=== PATIENT | female | born 1970 | race Caucasian/White ===

== ENCOUNTER 2018-08-13 10:25 | Day surgery (SDC) | payer BC, OTHER ==
[2018-08-12 10:40] VITALS: BMI 20.9
--- NOTE | 2018-08-13 07:28 | HP ---
History & Physical Update - History History: No Change - Physical Physical: No Change - Assessment Assessment: No Change - Plan Plan: No Change (H&P is located in her paper chart and will be scanned into [facility]. No new complaints or medications.)
[~2018-08-13 10:25] MED LIST: BUPIVACAINE HCL/PF (5 MG/ML) 30 ML VIAL IJ ONE; CEFAZOLIN 1 GM in DEXTROSE 5%-WATER - 100 ML IVPB ONE; DEXAMETHASONE SOD PHOSPHATE 4 MG/1 ML VIAL ONE; DEXAMETHASONE SOD PHOSPHATE/PF 10 MG/ML SDV ONE; GELATIN SPONGE,ABSORBABLE 1 GM PACKET TP ONE; HYDROmorphone HCL/PF 1 MG/ML AMP ONE; KETOROLAC TROMETHAMINE 30 MG/1 ML VIAL IVPUSH PRN; KETOROLAC TROMETHAMINE 30 MG/1 ML VIAL ONE; LIDOCAINE 1%/EPI 1:100000 (20 ML MULTI DOSE VIAL) ONE; LIDOCAINE 1%/EPI 1:100000 (50 ML MULTI DOSE VIAL) INF ONE; MIDAZOLAM HCL 2 MG/2 ML SINGLE DOSE VIAL ONE; ONDANSETRON 4 MG/2 ML VIAL ONE; PROPOFOL 20 ML ONE; ROCURONIUM BROMIDE 50 MG/5 ML VIAL ONE; SUCCINYLCHOLINE CHLORIDE 200 MG/10 ML VIAL ONE; THROMBIN (BOVINE) 5,000 UNIT VIAL TP ONE; THROMBIN (RECOMBINANT) 5,000 UNIT VIAL TP ONE; ceFAZolin SODIUM 1 GM VIAL ONE; ePHEDrine SULFATE 50 MG/1 ML AMPULE ONE; oxyCODONE HCL 10 MG SUSTAINED ACTING TABLET PO STA; oxyCODONE HCL 5 MG TABLET PO PRN
[2018-08-13] MEDS ORDERED: diazePAM 2 MG TABLET PO PRN (10:29)
[2018-08-13] MEDS ORDERED: LACTATED RINGERS SOLUTION 1,000 ML IV SCH (10:30)
--- NOTE | 2018-08-13 10:36 | OP ---
Operative Note - Note: Operative Date: 08/13/18 Pre-Operative Diagnosis: Cervical Stenosis w/ UE radiculopathy Operation: C4/5, C5/6 ACDF, allograft implant, neuromonitoring Post-Operative Diagnosis: Same as Pre-op Surgeon: Broderick Maciel Province Archivist: Sandor Cosby Anesthesiologist/SWITCH ENGINEER: Imer Zamora Anesthesia: General Specimens Removed: C4/5, C5/6 discs Estimated Blood Loss (mls): 20 Fluid Volume Replaced (mls): 1,000 Operative Report Dictated: Yes
--- NOTE | 2018-08-13 10:38 | SURG ---
Surgery Cardiovascular Invasive Specialist Note Cardiovascular Invasive Specialist: Sandor Cosby PA-C Date of Service: 08/13/18 Diagnosis: Cervical Stenosis (C4/5, C5/6) with upper extremity radiculopathy Procedure: Anterior Cerivcal Discectomy with Fusion C4/5, C5/6; allograft implant x2; Neuromonitoring I was present for the entirety of the operative procedure. For further detail, please refer to operative report. Visit type - Case Type Case Type: Scheduled - New patient This patient is new to me today: Yes Date on this admission: 08/13/18
--- NOTE | 2018-08-13 11:52 | OP ---
DATE OF OPERATION: 08/13/2018 PREOPERATIVE DIAGNOSIS: Cervical stenosis C4-5, C5-6. POSTOPERATIVE DIAGNOSIS: Cervical stenosis C4-5, C5-6. PROCEDURE PERFORMED: Anterior cervical discectomy and fusion C4-5. Anterior cervical discectomy and fusion C5-6. Placement of instrumentation C4 to C6. Placement of prosthetic cages. SURGEON: Broderick Maciel MD TURN DOWN ATTENDANT: NATASHA Arguello ESTIMATED BLOOD LOSS: 60 mL INTRAVENOUS FLUIDS: As per Anesthesia. ANESTHESIA: General/MCP block. COMPLICATIONS: None. DISPOSITION: Patient was brought to the PACU in stable condition. INDICATIONS FOR SURGERY: Patient is a 48-year-old female who has been suffering from pain from her neck down her arms. X-rays and MRI were completed, which showed that she had herniated disks at C4-5 and C5-6. She had gone through an exhaustive course of treatment for this, which included medications, physical therapy, as well as injections. Unfortunately her pain continued to persist despite all of this. At this point, the risks, benefits, and alternatives were discussed and the patient consented to surgery. DESCRIPTION OF PROCEDURE: Patient was brought to the operating room by anesthesia staff. After appropriate patient identification was performed, general anesthesia was administered. An MCP block was also given. Patient was placed supine on the OR bed with all areas of bony prominences well- padded at this time. A shoulder roll was placed underneath the shoulders to extend her neck to the point that she tolerated in the preoperative holding area. A needle was taped onto her neck to rudolph off the C4-5 level. X-rays were taken to confirm the site. Needle was removed and her neck was prepped and draped in the sterile manner. At this point, a timeout was completed. A 2-inch Incision was made on the left side of her neck. Dissection was carried down to the platysma. The platysma was cut in line of this incision. Next, the interval between the sternocleidomastoid and the strap muscles was developed. Next, the interval between the carotid sheath and tracheal esophagus was developed. The needle was placed into the C4-5 disk. X-ray was taken to confirm this was correct. The needle was removed and the longus colli muscles elevated off. Retractor blades were placed in and a [place] pin was placed in the body of C4 and C6. A knife was used to incise the disk and distraction was applied. At this point, the microscope was brought in. Using a series of pituitaries, Kerrisons and curettes discectomy was completed. The endplates were decorticated at this time. Cages filled with bone graft were placed in. A screw was placed into the body of C4, C5 and C6. [place] pin was removed. AP and lateral x-rays confirmed the instrumentation to be in good position. Final tightening was performed. The platysma was closed with 2-0 Vicryl suture. The skin was closed with 3-0 Monocryl suture. Dermabond was applied. Steri-Strips were applied. A sterile dressing was applied. The patient was supine on her bed and brought to the PACU in stable condition. BRODERICK MACIEL M.D. [id number]
[2018-08-13] MEDS: CEFAZOLIN 1 GM/D5W 1 GM/50 ML BAG IVPB SCH ×2 (15:46→22:07)
[2018-08-13] MEDS: ONDANSETRON 4 MG/2 ML VIAL IVPUSH PRN ×2 (17:03→21:37)
[2018-08-13] MEDS: PANTOPRAZOLE 20 MG TABLET (FP) PO SCH (22:29)
[2018-08-14 01:17] VITALS: TEMP 98.1
[2018-08-14 06:22] VITALS: BP 91/51; PULSE 58
[2018-08-14] MEDS ORDERED: LEVOTHYROXINE NA 112 MCG TABLET (FP) PO SCH (07:00)
[2018-08-14] MEDS: PANTOPRAZOLE 20 MG TABLET (FP) PO SCH (09:47)
--- NOTE | 2018-08-14 09:59 | PN ---
Progress Note (short form) - Note Progress Note: surgery POD#1 C4/5, C5/6 ACDF patient seen and examined at bedside. Patient states she had some vomiting last night after anesthesia which has since resolved. She is tolerating her diet and OOB to bathroom- voiding. She denies any CP/ SOB, Nausea, fever, chills or radicular symptoms in UE. Vital Signs Temp 98.1 F 08/14/18 06:00 Pulse 58 L 08/14/18 06:00 Resp 16 08/14/18 08:25 BP 91/51 L 08/14/18 06:00 Pulse Ox 99 08/14/18 08:25 Intake & Output 08/13/18 08/13/18 08/14/18 11:59 23:59 11:59 Intake Total 1000 1425 1450 Output Total 10 1350 450 Balance 201 60 6563 Weight 122 lb Intake: IV 1000 725 750 Lactated Ringers Solution 375 750 1,000 ml @ 125 mls/hr IV ASDIR CRISTINA Rx#: [id number] IVPB 50 Oral 650 700 Output: Urine 1350 450 Void 950 450 Estimated Blood Loss 10 Other: Voiding Method Toilet Toilet # Unmeasured Voids Void 1 Height 5 ft 4 in Body Mass Index (BMI) 20.9 Weight Measurement Method Standing Scale PE: A&Ox3, NAD Unlabored rep on RA incision c/d/i with surrounding tissue intact and no evidence of tracking erythema, edema or d/c. Trachea midline. 5/5 on B/L UE supervisor crack off and shoulder shrug. sensation to light touch grossly intact throughout. B/L LE compartments soft, supple and NT with +2 DP pulse X-Ray C spine: with hardware in place at operative levels. <Yesenia De Santiago - Last Filed: 08/14/18 09:52> - Note Progress Note: Patient seen and examined Agree with above D/C Planning <Broderick Maciel - Last Filed: 08/17/18 15:21> Problem List - Problems (1) S/P cervical spinal fusion Assessment/Plan: POD #1 doing well with post op vomiting resolved. 1) OOB as tolerated 2) Encourage IS 3) c-collar 4) d/c home today Evaluation and plan discussed with Dr Maciel Code(s): Z98.1 - ARTHRODESIS STATUS <Yesenia De Santiago - Last Filed: 08/14/18 09:52>
[2018-08-14] MEDS ORDERED: GABAPENTIN 100 MG CAPSULE (FP) PO SCH (10:00)
[2018-08-14] MEDS ORDERED: PATIENT'S OWN MEDICATION (NON-FORMULARY) (Omeprazole 20 MG) PO SCH (10:00)
--- NOTE | 2018-08-17 17:40 | PATH ---
Surgical Pathology Report Patient Name: PATRICK GONZAELZ Med. Rec. #: [id number] /Age/Gender: 1970 (Age: 48) / F Account: [id number] [facility] Taken: 08/13/2018 Received: 08/13/2018 Reported: 08/17/2018 Physicians: Broderick Maciel M.D. Specimen(s) Received CERVICAL DISC C4-5, C5-6 Clinical History Cervical stenosis Final Diagnosis CERVICAL DISC, C4-5, C5-6, ANTERIOR CERVICAL DISCECTOMY WITH FUSION: BENIGN INTRAVERTEBRAL DISC TISSUE. Electronically Signed Leslie Ibanez M.D. Gross Description Received in formalin labeled "C4-5, C5-6 cervical disc," is a 2.5 x 2.0 x 0.3 cm aggregate of elias fragments of fibrocartilaginous tissue. A student services representative portion is submitted in one cassette. /08/14/2018 [facility]08/14/2018
== END 2018-08-14 10:45 | disposition home or self-care (01) ==
LOC: FASUSAT 10:25 → FM/S 10:25 → FASUSAT 08-14 10:45
PROVIDERS: ATTEND Orthopaedic Surgery Orthopaedic Surgery of the Spine
PROC: 0RG10A0 Fusion of Cervical Vertebral Joint with Interbody Fusion Device, Anterior Approach, Anterior Column, Open Approach (ICD-10-PCS; 2018-08-13)
PROC: 0RG10K0 Fusion of Cervical Vertebral Joint with Nonautologous Tissue Substitute, Anterior Approach, Anterior Column, Open Approach (ICD-10-PCS; 2018-08-13)
PROC: 0RB30ZZ Excision of Cervical Vertebral Disc, Open Approach (ICD-10-PCS; principal; 2018-08-13 08:15)
DX: M48.02 Spinal stenosis, cervical region (principal)
CPT/HCPCS: 22551; 22552; 22845; 22853; C1889; 72050-TC-FY; 81025; 88304-TC; 94760; 97162-GP

== ENCOUNTER 2019-11-26 06:20 | Day surgery (SDC) | payer BC, OTHER ==
[2019-11-24 15:58] VITALS: BMI 22.6
--- OUTSIDE RECORDS SUMMARY | 2019-11-26 06:24 | XMS ---
:1970 Author Organization [facility] Support Name Relationship Address Phone UE Unavailable Unavailable Unavailable IDALMIS GONZALEZ [address] [place] [id number] Re-disclosure Warning The records that you are about to access may contain information from federally- assisted alcohol or drug abuse programs. If such information is present, then the following federally mandated warning applies: This information has been disclosed to you from records protected by federal confidentiality rules (42 CFR part 2). The federal rules prohibit you from making any further disclosure of this information unless further disclosure is expressly permitted by the written consent of the person to whom it pertains or as otherwise permitted by 42 CFR part 2. A general authorization for the release of medical or other information is NOT sufficient for this purpose. The Federal rules restrict any use of the information to criminally investigate or prosecute any alcohol or drug abuse patient.The records that you are about to access may contain highly sensitive health information, the redisclosure of which is protected by Article 27-F of the [facility] Public Health law. If you continue you may haveaccess to information: Regarding HIV / AIDS; Provided by facilities licensed or operated by the [facility] Office of Mental Health; or Provided by the [facility] Office for People With Developmental Disabilities. If such information is present, then the following [facility] mandated warning applies: This information has been disclosed to you from confidential records which are protected by state law. State law prohibits you from making any further disclosure of this information without the specific written consent of the person to whom it pertains, or as otherwise permitted by law. Any unauthorized further disclosure in violation of state law may result in a fine or shelter sentence or both. A general authorization for the release of medical or other information is NOT sufficient authorization for further disclosure. Insurance Providers Payer name Policy type Policy ID Covered Covered green party's Policy P aryan / Coverage green party ID relationship to [employer] ormation type solis MEDICARE [id number] SP [id number] 04 4 BC POS [id number] S [id number] MEDICARE [id number] SP [id number] 4 BC POS [id number] S [id number] Results ID Date Data Source [id number] 11/22/2019 10:30:00 AM EDT [facility] Name Value Range Interpretation Description Data Sup porting Code Source(s) Document(s ) SARS [facility] coronavirus 2 RNA This lab was ordered by [facility] and reported by [facility]. ID Date Data Source [id number] 09/27/2019 10:48:00 AM EDT [facility] Name Value Range Interpretation Description Data Sup porting Code Source(s) Document(s ) SARS [facility] coronavirus 2 RNA This lab was ordered by [facility] and reported by [facility]. ID Date Data Source [id number] 09/02/2019 12:13:00 PM EDT [facility] Name Value Range Interpretation Code Description Data Marion rce(s) Supporting Document(s ) SARS-COV-2 [facility] QL REX+PROBE This lab was ordered by [facility] and repo rted by [facility]. Procedure
[2019-11-26] MEDS ORDERED: PROPOFOL 20 ML ONE ×2 (07:16)
[2019-11-26] MEDS ORDERED: SUCCINYLCHOLINE CHLORIDE 200 MG/10 ML SYRINGE ONE (07:16)
[2019-11-26] MEDS ORDERED: ROCURONIUM BROMIDE 50 MG/5 ML VIAL ONE (07:17)
[2019-11-26] MEDS ORDERED: MIDAZOLAM HCL 2 MG/2 ML SINGLE DOSE VIAL ONE (07:20)
[2019-11-26] MEDS ORDERED: BUPIVACAINE HCL/PF 0.25% (2.5MG/ML) 10 ML VIAL ONE (07:28)
[2019-11-26] MEDS ORDERED: LIDOCAINE HCL 1%, 10 MG/ML (20ML VIAL) ONE (07:28)
[2019-11-26] MEDS ORDERED: ACETAMINOPHEN 325 MG TABLET (FP) PO PRN (07:44)
[2019-11-26] MEDS ORDERED: oxyCODONE HCL 5 MG TABLET PO PRN ×2 (07:44)
[2019-11-26] MEDS ORDERED: ONDANSETRON 4 MG/2 ML VIAL IVPUSH PRN (07:44)
[2019-11-26] MEDS ORDERED: LACTATED RINGERS SOLUTION 1,000 ML IV SCH (07:45)
[2019-11-26] MEDS ORDERED: BUPIVACAINE HCL/PF 0.25% (2.5MG/ML) 10 ML VIAL IJ ONE (07:53)
[2019-11-26] MEDS ORDERED: LIDOCAINE HCL 1%, 10 MG/ML (20ML VIAL) NR ONE (07:53)
[2019-11-26 08:20] VITALS: TEMP 98.1
[2019-11-26 09:04] VITALS: BP 108/67; PULSE 60
--- NOTE | 2019-11-28 20:40 | OP ---
DATE OF OPERATION: 11/26/2019 SURGEON: Francisca Restrepo MD MEDICAL DIRECTOR/HEAD TEAM PHYSICIAN: NATASHA Damian PREOPERATIVE DIAGNOSIS: Right carpal tunnel syndrome. POSTOPERATIVE DIAGNOSIS: Right carpal tunnel syndrome. PROCEDURE: Right carpal tunnel release ([id number]). FINDINGS: Thickened transcarpal ligament impinging upon the median nerve. PROCEDURE: Under sterile conditions, right the upper extremity was prepped and draped in a sterile fashion. Incision was made along the longitudinal portion of the carpal tunnel. A longitudinal incision was made along the proximal portion of the palm, following the palm crease. This was taken down to the transcarpal ligament, which was released initially with scalpel and then extended proximally and distally using blunt tenotomy scissors. The median nerve was identified and completely released from impingement by the transcarpal ligament. The wound was then irrigated with copious amounts of irrigation. Skin was closed with 5-0 nylon in single interrupted sutures. The PA listed above was present and assisted at surgery. Their presence was absolutely medically necessary for the completion of the procedure. They helped hold the arthroscopy, pass instruments (and implants when indicated) and the procedure could not have been completed without their assistance. FRANCISCA RESTREPO M.D. [id number]
== END 2019-11-26 09:10 | disposition home or self-care (01) ==
LOC: FASU 06:20
PROVIDERS: ATTEND Orthopaedic Surgery
PROC: 01N50ZZ Release Median Nerve, Open Approach (ICD-10-PCS; principal; 2019-11-26 07:53)
DX: G56.01 Carpal tunnel syndrome, right upper limb (principal)